=== PATIENT | male | born 1960 | race Asian ===

== ENCOUNTER 2018-01-07 18:23 | Emergency (ER) | payer BC ==
[~2018-01-07] VITALS: Ht 170.2 cm; Wt 63.5 kg
[2018-01-07 18:23] VITALS: Ht 170.2 cm; Wt 63.5 kg
== END 2018-01-07 23:51 | disposition expired ==
LOC: ED 18:23
DX: I46.9 Cardiac arrest, cause unspecified (principal)
CPT/HCPCS: 82962; J7030